=== PATIENT | male | born 1960 | race Caucasian/White ===

== ENCOUNTER 2024-02-06 11:13 | Emergency (ER) | payer OTHER, SELFPAY ==
[2024-02-06 11:58] VITALS: BP 136/89; PULSE 62; RESP 18; TEMP 36.1; O2SAT 100; BMI 26.4
--- NOTE | 2024-02-06 12:46 | ED_ITS ---
HPI - Eye Problem General Chief complaint: Eye Problems Stated complaint: eye injury Time Seen by Provider: 02/06/24 12:40 History of Present Illness HPI Narrative: This 63-year-old male comes in with an injury to his left eye that occurred just prior to arrival. He was outside and he states that AP part of a pine tree injured him in his left eye. He is holding his left eye closed. He does not report any other injury. Related Data Previous Rx's Medication Instructions Recorded polymyxin B sulfate 10,000 1 drp ophthalmic (eye) Q3H 7 days 02/06/24 unit-trimethoprim 1 mg/mL eye drops #10 mL Allergies Allergy/AdvReac Type Severity Reaction Status Date / Time No Known Drug Allergies Allergy Verified 02/06/24 11:58 Review of Systems Status of ROS: Reports: 10 or more systems reviewed and unremarkable except as noted in History and below Narrative: Constitutional: No fevers, no weight gain or loss. Eyes: Left eye injury as described above. HENT: No congestion, no sore throat, no ear pain. Cardiovascular: No chest pain, no palpitations. Respiratory: No shortness of breath, no wheezes, no cough. Gastrointestinal: No abdominal pain, no vomiting, no diarrhea. Genitourinary: No dysuria, no hematuria. Musculoskeletal: Normal range of motion. Skin: No rashes, no pruritis. Neurological: No dizziness, weakness, sensory change, speech change. Endo/Heme/Allergies: No bruising or bleeding. No polydipsia. Pysch: no suicidality, no anxiety, no insomnia. All other systems reviewed and are negative. PFSH PFS Social History Smoking Status: Never smoker How often do you have a drink containing alcohol: never AUDIT-C Alcohol total score: 0 Non-prescribed substance use: denies use Exam Narrative: Exam Narrative: Constitutional: Well-developed, well-nourished, no acute distress. HEENT: Normocephalic, atraumatic. Left eye is examined under magnification after applying tetracaine and shows no sign of foreign object. Fluorescein dye was applied and with black light there was no particular dye uptake however the room he was in was not able to be sufficiently darkened. Neck: Normal range of motion. Nontender. Supple. Heart: Intact distal pulses. Lungs: No chest discomfort. No wheezes, rhonchi, or rales. Abdomen: Nontender. Back: Normal range of motion. Extremities: Normal range of motion. No injury. Skin: Intact. No rash. Warm. No erythema or pallor. Neurologic: No altered sensation. No weakness. Alert and oriented. Psychiatric: No suicidality. No anxiety or depression. No insomnia. Nursing notes and vitals signs are reviewed. Const: Vital Signs, click to edit/add: Vital Signs - 24 hr 02/06/24 11:58 Temperature 97 F L Pulse Rate [Pulse Oximeter] 62 Respiratory Rate 18 Blood Pressure [Ri ght Upper Arm] 136/89 Pulse Oximetry 100 Oxygen Delivery Me thod Room Air Course Vital Signs Vital signs: Initial Vital Signs Temperature 97 F L 02/06/24 11:58 Temperature Source Temporal Artery Scan 02/06/24 11:58 Pulse Rate 62 02/06/24 11:58 Respiratory Rate 18 02/06/24 11:58 Blood Pressure 136/89 02/06/24 11:58 Blood Pressure Mean 104 02/06/24 11:58 Pulse Oximetry 100 02/06/24 11:58 Oxygen Delivery Method Room Air 02/06/24 11:58 Vital Signs Temperature 97 F L 02/06/24 11:58 Pulse Rate 62 02/06/24 11:58 Respiratory Rate 18 02/06/24 11:58 Blood Pressure 136/89 02/06/24 11:58 Pulse Oximetry 100 02/06/24 11:58 Oxygen Delivery Method Room Air 02/06/24 11:58 Temperature 97 F L 02/06/24 11:58 Pulse Rate 62 02/06/24 11:58 Respiratory Rate 18 02/06/24 11:58 Blood Pressure 136/89 02/06/24 11:58 Pulse Oximetry 100 02/06/24 11:58 Oxygen Delivery Method Room Air 02/06/24 11:58 MDM - Eye Problem MDM Narrative Medical decision making narrative: This patient comes in with an injury to his left eye as described above. He had significant discomfort and was unable to open his eye for examination until after applying tetracaine which brought good anesthesia. I was able to examine his eye under magnification and saw no sign of foreign object or obvious corneal abrasion. His symptoms are suspicious for corneal abrasion. The patient is okay to be discharged home and did receive a prescription for Polytrim. Discharge Plan Discharge Clinical Impression: Corneal abrasion Patient Disposition: Home, Self-Care Condition: Stable Additional Instructions: Use medication as prescribed. Avoid rubbing her eye to allow for better healing. Follow up with MD or return if worsening. Prescriptions: New polymyxin B sulf-trimethoprim 10,000 unit- 1 mg/mL drops 1 drp ophthalmic (eye) Q3H 7 Days Qty: 10 0RF Rx Instructions: while awake; do not exceed 6 doses in 24 hours Stand Alone Forms: Mr [employer] Info Instructions
== END 2024-02-06 13:17 | disposition home or self-care (01) ==
PROVIDERS: Emergency Provider Emergency Medicine Emergency Medical Services
DX: S05.02XA Injury of conjunctiva and corneal abrasion without foreign body, left eye, initial encounter (principal); W31.89XA Contact with other specified machinery, initial encounter
CPT/HCPCS: 99283; 99284; A9270